=== PATIENT | male | born 1970 | race American Indian/Alaskan Native ===

== ENCOUNTER 2020-11-02 15:17 | Emergency (ER) | payer BC ==
--- NOTE | 2020-11-02 16:34 | Event Note ---
ED Screening Note Date of service: 11/02/20 Time: 16:33 ED Screening Note: 50-year-old -[place] male presents to the emergency room for right lower extremity swelling and pain and discoloration x4 days. Patient states that is been painful for about 2 weeks but noticed the discoloration recently. Patient denies any recent falls or injuries. Patient states that he went to an urgent care today and they sent him to the ER to be evaluated. Patient denies any chest pain or shortness of breath. This initial assessment/diagnostic orders/clinical plan/treatment(s) is/are subject to change based on patients health status, clinical progression and re- assessment by fellow clinical providers in the ED. Further treatment and workup at subsequent clinical providers discretion. Patient/guardian urged not to elope from the ED as their condition may be serious if not clinically assessed and managed. Initial orders include:
[2020-11-02 17:51] LABS: Basophils % (Auto) 0.4 % (0.0-1.8); Eosinophils # (Auto) 0.1 K/mm3 (0.0-0.4); Eosinophils % (Auto) 1.5 % (0.0-4.3); Hematocrit 32.2 % (35.5-45.6); Hemoglobin 10.2 gm/dl (11.8-15.2); Lymphocytes # (Auto) 1.4 K/mm3 (1.2-5.4); Lymphocytes % (Auto) 20.2 % (13.4-35.0); Mean Corpuscular HGB Conc 32 % (32-34); Mean Corpuscular Volume 87 fl (84-94); Monocytes # (Auto) 0.6 K/mm3 (0.0-0.8); Monocytes % (Auto) 9.1 % (0.0-7.3); Platelet Count 179 K/mm3 (140-440); Red Blood Count 3.69 M/mm3 (3.65-5.03); Red Cell Distribution Width 15.1 % (13.2-15.2)
--- NOTE | 2020-11-02 18:02 | Vascular Lab Report ---
DUPLEX DOPPLER LOWER EXTREMITY VEINS, RIGHT INDICATION / CLINICAL INFORMATION: rt le ext swelling, pain and discoloration.. TECHNIQUE: Duplex doppler imaging was performed through the veins of the right lower extremity using venous comp ression and other maneuvers. COMPARISON: None available. FINDINGS: RIGHT COMMON FEMORAL VEIN: Negative. RIGHT FEMORAL VEIN: There is incomplete compressibility with internal echoes demonstrated within the distal right femoral vein. Doppler flow is present. RIGHT POPLITEAL VEIN: Negative. RIGHT CALF VEINS: Negative. ADDITIONAL FINDINGS: Thrombus is also present within the right gastrocnemius vein in the calf. IMPRESSION: 1. Acute partially occlusive thrombus of the distal right femoral vein. 2. Superficial thrombophlebitis of the right gastrocnemius vein in the calf. CRITICAL RESULT: Time of Discovery (WIRE STITCHER/CDT): 11/02/2020 at 4:50 PM Time of Communication (WIRE STITCHER/CDT): 11/02/2020 at 4:58 PM Licensed Practitioner Receiving Report: JEFFREY Vora Read-Back Performed: Yes. Signer Name: Esa Romero MD Signed: 11/02/2020 5:58 PM Workstation Name: [id number]
[2020-11-02 18:14] LABS: Albumin 3.8 g/dL (3.9-5); Calcium 8.4 mg/dL (8.4-10.2)
[2020-11-02 18:17] LABS: INR 1.08 (0.87-1.13); Partial Thromboplastin Time 26.2 Sec. (24.2-36.6)
[2020-11-02] MEDS ORDERED: SODIUM CHLORIDE 0.9% 1000 ML 2,000 ML IV ONE (18:19)
[2020-11-02] MEDS ORDERED: SODIUM CHLORIDE 0.9% 1000 ML 3,000 ML IV ONE (18:19)
[2020-11-02] MEDS ORDERED: oxyCODONE /ACETAMINOPHEN 5-325MG TAB PO PRN (18:21)
[2020-11-02] MEDS ORDERED: ACETAMINOPHEN 325 MG TAB PO PRN (18:21)
--- NOTE | 2020-11-02 18:27 | History and Physical Report ---
History of Present Illness Chief complaint: My right leg swelling up History of present illness: 50 YO Male with Obesity Hypoventilation Syndrome, DM, HTN presents to ED for evaluation. Patient states that he has experienced "right leg swelling" over the past 1 week with persistent symptoms over the same timeframe. Patient also acknowledges right leg discoloration over the past 3 days. Patient presented to urgent care and was subsequent instructed to seek further care at [facility]. Patient transported via private vehicle to [facility] for further care and evaluation of the aforementioned symptoms. The patient was seen and evaluated in the emergency department. All lab and imaging studies reviewed. Patient underwent right lower extremity Doppler which revealed right femoral vein DVT.. The patient was also found to have acute kidney injury. The patient was admitted to medical floor and initiated on renal dose therapeutic anticoagulation. Patient denies fever, chills, chest pain, palpitations, productive cough, shortness of breath, recent ill contacts, prolonged travel/immobility, individual/family history of DVT/PE/bleeding/blood clotting disorders, trauma, known exposure to COVID-19. No prior admission for review. No medication listed at time of admission for reconciliation. Past History Past Medical History: diabetes, hypertension, other (See HPI) Past Surgical History: cholecystectomy, Other (Left knee surgery) Social history: single. denies: smoking, alcohol abuse, prescription drug abuse Family history: diabetes, hypertension Medications and Allergies Allergies Allergy/AdvReac Type Severity Reaction Status Date / Time bee venom protein (honey bee) Allergy Swelling Verified 11/02/20 15:32 Penicillins Allergy Unknown Verified 11/02/20 15:32 pollen extracts Allergy Unknown Verified 11/02/20 15:32 Active Meds: Active Medications Acetaminophen (Acetaminophen 325 Mg Tab) 650 mg PO Q4H PRN PRN Reason: Pain MILD(1-3)/Fever >100.5/VIDAL Sodium Chloride (Nacl 0.9% 1000 Ml) 3,000 mls @ 999 mls/hr IV BOLUS ONE Stop: 11/02/20 21:19 Ondansetron HCl (Ondansetron 4 Mg/2 Ml Inj) 4 mg IV Q8H PRN PRN Reason: Nausea And Vomiting Oxycodone/Acetaminophen (Oxycodone /Acetaminophen 5-325mg Tab) 1 tab PO Q6H PRN PRN Reason: Pain, Moderate (4-6) Sodium Chloride (Sodium Chloride 0.9% 10 Ml Flush Syringe) 10 ml IV BID MARTHA Sodium Chloride (Sodium Chloride 0.9% 10 Ml Flush Syringe) 10 ml IV PRN PRN PRN Reason: LINE FLUSH Review of Systems Constitutional: no weight loss, no weight gain, no fever, no chills Ears, nose, mouth and throat: no ear pain, no ear discharge, no tinnitis, no decreased hearing, no nose pain, no nasal congestion, no nasal discharge Cardiovascular: no chest pain, no orthopnea, no palpitations, no edema, no syncope, no lightheadedness, no shortness of breath Respiratory: no cough, no cough with sputum, no excessive sputum, no hemoptysis, no congestion, no pleurisy, no pain, no pain on inspiration Gastrointestinal: no abdominal pain, no nausea, no vomiting, no diarrhea, no change in bowel habits Genitourinary Male: no hematuria, no flank pain, no discharge, no urinary frequency, no urinary hesitancy Rectal: no pain, no incontinence, no bleeding Musculoskeletal: other (Right leg edema), no neck stiffness, no neck pain, no s hooting arm pain, no arm numbness/tingling, no low back pain Integumentary: no rash, no pruritis, no sores, no wounds, no jaundice, no boils Neurological: no transient paralysis, no paralysis, no weakness, no parathesias, no tingling, no seizures, no syncope, no tremors Psychiatric: no anxiety, no change in sleep habits, no sleep disturbances, no hypersomnia, no change in libido, no suicidal ideation Endocrine: no cold intolerance, no polyphagia, no polydipsia, no polyuria, no nocturia, no excessive sweating Hematologic/Lymphatic: no easy bruising, no easy bleeding Allergic/Immunologic: no urticaria, no wheezing Exam - Constitutional Vitals: Temp Pulse Resp BP Pulse Ox 98.2 F 92 H 18 126/79 97 11/02/20 15:32 11/02/20 15:32 11/02/20 15:32 11/02/20 15:32 11/02/20 15:32 General appearance: Present: mild distress - EENT Eyes: Present: PERRL ENT: hearing intact, clear oral mucosa - Neck Neck: Present: supple, normal ROM - Respiratory Respiratory effort: normal Respiratory: bilateral: CTA - Cardiovascular Heart Sounds: Present: S1 & S2. Absent: rub, click - Extremities Extremities: pulses symmetrical, No edema Extremity abnormal: edema, other (Right lower extremity, palpable cords) Peripheral Pulses: within normal limits - Abdominal General gastrointestinal: Present: soft, non-tender, non-distended, normal bowel sounds Male genitourinary: Present: normal - Integumentary Integumentary: Present: clear, warm, dry - Musculoskeletal Musculoskeletal: gait normal, strength equal bilaterally - Psychiatric Psychiatric: appropriate mood/affect, intact judgment & insight - Neurologic Neurologic: CNII-XII intact, moves all extremities Results - Labs CBC & Chem 7: 11/02/20 16:56 11/02/20 16:56 Labs: Abnormal lab results 11/02/20 11/02/20 Range/Units 16:56 16:56 Hgb 10.2 L (11.8-15.2) gm/dl Hct 32.2 L (35.5-45.6) % Hodgeman % (Auto) 9.1 H (0.0-7.3) % Chloride 107.1 H (98-107) mmol/L BUN 35 H (9-20) mg/dL Creatinine 2.4 H (0.8-1.3) mg/dL Glucose 198 H (75-100) mg/dL Albumin 3.8 L (3.9-5) g/dL Assessment and Plan - Patient Problems (1) DVT, lower extremity Current Visit: Yes Status: Acute Qualifiers: Affected thrombotic vein of extremity: femoral Chronicity: acute [place]ality: right Qualified Code(s): I82.411 - Acute embolism and thrombosis of right femoral vein Plan to address problem: Right lower extremity duplex, therapeutic anticoagulation with Eliquis, supportive care. We will increase therapeutic anticoagulation to 10 mg twice daily if patient renal function normalizes in a.m. (2) Acute kidney injury (SEA) with acute tubular necrosis (ATN) Current Visit: Yes Status: Acute Plan to address problem: IV fluid resuscitation therapy, monitor urine output every shift, avoid nephrotoxic agents repeat BMP in a.m. (3) Hypertension Current Visit: Yes Status: Acute Qualifiers: Hypertension type: essential hypertension Qualified Code(s): I10 - Essential (primary) hypertension Plan to address problem: Monitor blood pressure every shift, continue medical management (4) Diabetes Current Visit: Yes Status: Acute Plan to address problem: Sign scale insulin therapy, consistent carbohydrate diet, , Accu-Chek, hypoglycemia protocol (5) Obesity hypoventilation syndrome Current Visit: Yes Status: Acute Plan to address problem: Supplemental oxygen, pulse oximetry, outpatient pulmonary follow-up for sleep study. (6) DVT prophylaxis Current Visit: Yes Status: Acute Plan to address problem: SCD to bilateral lower extremities while in bed, therapeutic anticoagulation.
[2020-11-02 18:29] VITALS: BP 154/95
[2020-11-02] MEDS ORDERED: ONDANSETRON 4 MG/2 ML INJ IV PRN (18:31)
--- NOTE | 2020-11-02 18:33 | Emergency Department Report ---
ED General Adult HPI - General Chief complaint: Extremity Injury, Lower Stated complaint: SWELLING RT LEG PUI?: No Time Seen by Provider: 11/02/20 16:31 Source: patient, RN notes reviewed Mode of arrival: Ambulatory Limitations: No Limitations - History of Present Illness Initial comments: The patient was evaluated in the emergency department for symptoms described in the history of present illness. He/she was evaluated in the context of the global COVID-19 pandemic, which necessitated consideration that the patient might be at risk for infection with the virus that causes COVID-19. Institutional protocols and algorithms that pertain to the evaluation of patients at risk for COVID-19 are in a state of rapid change based on information released by regulatory bodies including the CDC and federal and state organizations. These policies and algorithms were followed during the patient's care in the emergency department. Please note that these policies, procedures and recommendations changed on a rapid basis. The patient is a 50-year-old gentleman. He typically follows at [facility]. Past medical history includes obesity, diabetes and hypertension. The patient presents to the ER with a complaint of right posterior distal leg discoloration, swelling and cramping. This is present for 1 week. The patient denies additional injuries and complaints. 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 Denies fever, cough, loss of taste and smell. Denies hematemesis and bright red blood per rectum. Denies personal/family history of DVT and pulmonary embolism risk factors. Patient has not had outpatient screening colonoscopy, or head prostate screening. There is no personal history of malignancy. There is a family history of gastric cancer in his brother. -: Gradual, days(s) Location: right, lower extremity Severity scale (0 -10): 6 Quality: aching Consistency: constant Improves with: none Worsens with: none Associated Symptoms: denies other symptoms - Related Data Allergies Allergy/AdvReac Type Severity Reaction Status Date / Time bee venom protein (honey bee) Allergy Swelling Verified 11/02/20 15:32 Penicillins Allergy Unknown Verified 11/02/20 15:32 pollen extracts Allergy Unknown Verified 11/02/20 15:32 ED Review of Systems ROS: Stated complaint: SWELLING RT LEG Other details as noted in HPI Comment: All other systems reviewed and negative Musculoskeletal: myalgia Skin: change in color ED Past Medical Hx - Past Medical History Previous Medical History?: Yes Hx Hypertension: Yes Hx Diabetes: Yes - Surgical History Past Surgical History?: Yes Hx Cholecystectomy: Yes Additional Surgical History: left knee - Social History Smoking Status: Never Smoker Substance Use Type: None ED Physical Exam - General Limitations: No Limitations General appearance: alert, in no apparent distress, obese - Head Head exam: Present: atraumatic, normocephalic - Eye Eye exam: Present: normal appearance, EOMI. Absent: nystagmus - ENT ENT exam: Present: normal exam, normal orophraynx, mucous membranes moist, normal external ear exam - Neck Neck exam: Present: normal inspection, full ROM. Absent: tenderness, meningismus - Respiratory Respiratory exam: Present: normal lung sounds bilaterally. Absent: respiratory distress, wheezes, rales, rhonchi, stridor, decreased breath sounds - Cardiovascular Cardiovascular Exam: Present: regular rate, normal rhythm, normal heart sounds. Absent: bradycardia, tachycardia, irregular rhythm, systolic murmur, diastolic murmur, rubs, gallop - GI/Abdominal GI/Abdominal exam: Present: soft, normal bowel sounds. Absent: distended, tenderness, guarding, rebound, rigid, pulsatile mass - Rectal Rectal exam: Present: deferred - Extremities Exam Extremities exam: Present: full ROM, other (2+ pulses noted in the bilateral upper and lower extremities. There is no long bony tenderness. The muscular compartments are soft. The right lower extremity is swollen compared to the left. There is hyperpigmentation of the right posterior distal lower extremity.). Absent: tenderness - Back Exam Back exam: Present: normal inspection, full ROM. Absent: tenderness, CVA tenderness (R), CVA tenderness (L), muscle spasm, paraspinal tenderness, vertebral tenderness - Neurological Exam Neurological exam: Present: alert, oriented X3, other (No facial droop. Tongue midline. Extraocular movements intact bilaterally. Facial sensation intact to light touch in V1, V2, V3 distribution bilaterally. 5 and a 5 strength in 4 extremities. Sensation intact to light touch in 4 extremities.). Absent: motor sensory deficit - Psychiatric Psychiatric exam: Present: normal affect, normal mood - Skin Skin exam: Present: warm, dry, intact, other (Hyperpigmentation of the right distal posterior lower extremity). Absent: rash ED Course Vital Signs 11/02/20 11/02/20 15:32 18:28 Temperature 98.2 F 97.9 F Pulse Rate 92 H 86 Respiratory 18 18 Rate Blood Pressure 126/79 Blood Pressure 154/95 [Left] O2 Sat by Pulse 97 100 Oximetry ED Medical Decision Making - Lab Data Result diagrams: 11/02/20 16:56 11/02/20 16:56 Vital Signs 11/02/20 11/02/20 15:32 18:28 Temperature 98.2 F 97.9 F Pulse Rate 92 H 86 Respiratory 18 18 Rate Blood Pressure 126/79 Blood Pressure 154/95 [Left] O2 Sat by Pulse 97 100 Oximetry Lab Results 11/02/20 11/02/20 11/02/20 Range/Units 16:56 16:56 16:56 WBC 7.0 (4.5-11.0) K/mm3 RBC 3.69 (3.65-5.03) M/mm3 Hgb 10.2 L (11.8-15.2) gm/dl Hct 32.2 L (35.5-45.6) % MCV 87 (84-94) fl MCH 28 (28-32) pg MCHC 32 (32-34) % RDW 15.1 (13.2-15.2) % Plt Count 179 (140-440) K/mm3 Lymph % (Auto) 20.2 (13.4-35.0) % Calhoun % (Auto) 9.1 H (0.0-7.3) % Eos % (Auto) 1.5 (0.0-4.3) % Baso % (Auto) 0.4 (0.0-1.8) % Lymph # (Auto) 1.4 (1.2-5.4) K/mm3 Calhoun # (Auto) 0.6 (0.0-0.8) K/mm3 Eos # (Auto) 0.1 (0.0-0.4) K/mm3 Baso # (Auto) 0.0 (0.0-0.1) K/mm3 Seg Neutrophils % 68.8 (40.0-70.0) % Seg Neutrophils # 4.8 (1.8-7.7) K/mm3 PT 13.9 (12.2-14.9) Sec. INR 1.08 (0.87-1.13) APTT 26.2 (24.2-36.6) Sec. Sodium 139 (137-145) mmol/L Potassium 4.3 (3.6-5.0) mmol/L Chloride 107.1 H (98-107) mmol/L Carbon Dioxide 25 (22-30) mmol/L Anion Gap 11 mmol/L BUN 35 H (9-20) mg/dL Creatinine 2.4 H (0.8-1.3) mg/dL Estimated GFR 35 ml/min BUN/Creatinine Ratio 15 % Glucose 198 H (75-100) mg/dL Calcium 8.4 (8.4-10.2) mg/dL Total Bilirubin 0.50 (0.1-1.2) mg/dL AST 13 (5-40) units/L ALT 11 (7-56) units/L Alkaline Phosphatase 69 (35-129) units/L Total Protein 6.7 (6.3-8.2) g/dL Albumin 3.8 L (3.9-5) g/dL Albumin/Globulin Ratio 1.3 % - Radiology Data Radiology results: report reviewed, image reviewed Print Report Referring Physician: RAMONITA BROWN Patient Name: POLY RODRIGUEZ Date of : 1970 Sex: Male Report Date: 2020-11-02 Report Status: [place] [address] Vascular Lab Report Signed Patient: POLY RODRIGUEZ MR#: [id number] 5 : 1970 Acct:[id number] Age/Sex: 50 / M ADM Date: 11/02/20 Loc: ED Attending Dr: Ordering Physician: ANA FISCHER Date of Service: 11/02/20 Procedure(s): VL venous duplex LE RT Accession Number(s): [id number] cc: ANA FISCHER DUPLEX DOPPLER LOWER EXTREMITY VEINS, RIGHT INDICATION / CLINICAL INFORMATION: rt le ext swelling, pain and discoloration.. TECHNIQUE: Duplex doppler imaging was performed through the veins of the right lower extremity using venous compression and other maneuvers. COMPARISON: None available. FINDINGS: RIGHT COMMON FEMORAL VEIN: Negative. RIGHT FEMORAL VEIN: There is incomplete compressibility with internal echoes demonstrated within the distal right femoral vein. Doppler flow is present. RIGHT POPLITEAL VEIN: Negative. RIGHT CALF VEINS: Negative. ADDITIONAL FINDINGS: Thrombus is also present within the right gastrocnemius vein in the calf. IMPRESSION: 1. Acute partially occlusive thrombus of the distal right femoral vein. 2. Superficial thrombophlebitis of the right gastrocnemius vein in the calf. CRITICAL RESULT: Time of Discovery (FRONT END TECHNICIAN/CDT): 11/02/2020 at 4:50 PM Time of Communication (FRONT END TECHNICIAN/CDT): 11/02/2020 at 4:58 PM Licensed Practitioner Receiving Report: JFEFREY Vora Read-Back Performed: Yes. Signer Name: Taj Romero MD Signed: 11/02/2020 5:58 PM Workstation Name: [id number] Transcribed By: JS Dictated By: TAJ ROMERO MD Electronically Authenticated By: TAJ ROMERO MD Signed Date/Time: 11/02/201757 DD/ 52 TD/TT: - Medical Decision Making Differential diagnosis, including but not limited to: Renal insufficiency, hepatic insufficiency, DVT, venous stasis Assessment and plan: 50-year-old gentleman with right lower extremity swelling, found to have lower extremity DVT, without chest pain, shortness of breath. This appears to be an unprovoked DVT. Patient denies discussed the need to follow-up as an outpatient to exclude cancer, tumor, malignancy. He is resting comfortably in his stretcher. Laboratory studies were obtained, and demonstrated renal insufficiency of unknown chronicity. Given renal insufficiency, patient not a candidate at this time for novel oral anticoagulant. Admission is recommended for IV fluids, initiation of anticoagulation, and further diagnostic work-up. Patient is amenable to this plan of care. Hospital physician, Dr. Melendez, has accepted the patient to his service. He requests IV fluids, and requested that we not initiate heparin drip. The emergency room, and indicated he would determine appropriate plan of anticoagulation. Critical care attestation.: If time is entered above; I have spent that time in minutes in the direct care of this critically ill patient, excluding procedure time. ED Disposition Clinical Impression: Renal insufficiency DVT, lower extremity Qualifiers: Affected thrombotic vein of extremity: femoral Chronicity: acute Laterality: right Qualified Code(s): I82.411 - Acute embolism and thrombosis of right femoral vein Disposition: OP ADMIT IP TO THIS HOSP Is pt being admited?: Yes Does the pt Need Aspirin: No Condition: Good Referrals: PRIMARY CARE, [Primary Care Provider] - 3-5 Days
[2020-11-02] MEDS ORDERED: SODIUM CHLORIDE 0.9% 1000 ML 1,000 ML IV ONE (19:00)
[2020-11-02 19:17] LABS: Creatinine,Urine 129.1 mg/dL (0.1-20.0)
[2020-11-02] MEDS ORDERED: APIXABAN 5 MG TAB PO SCH (20:00)
[2020-11-05 10:20] LABS: Protein S, Free 143 % normal (57-171); Protein S, Total 102 % normal (70-140)
== END 2020-11-02 23:10 | disposition admitted as inpatient to this hospital (09) ==
LOC: ED 15:17 → 3A 18:21 → UNDOADMOB 18:21 → 3A 22:22 → 4A 22:22
DX: N17.9 Acute kidney failure, unspecified (principal); I82.409 Acute embolism and thrombosis of unspecified deep veins of unspecified lower extremity; I10 Essential (primary) hypertension; E11.9 Type 2 diabetes mellitus without complications; Z90.49 Acquired absence of other specified parts of digestive tract; Z98.890 Other specified postprocedural states; Z88.0 Allergy status to penicillin; Z88.8 Allergy status to other drugs, medicaments and biological substances
CPT/HCPCS: 36415; 80053; 82570; 84300; 85025; 85220; 85301; 85305; 85610; 85730; 93971; 96360; 96361; 99284; J7030

== ENCOUNTER 2021-02-11 01:11 | Emergency (ER) | payer BC ==
[2021-02-11 02:31] VITALS: BP 156/77
--- NOTE | 2021-02-11 04:28 | Emergency Department Report ---
ED Back Pain/Injury HPI - General Chief Complaint: Extremity Injury, Lower Stated Complaint: LOWER BACK/HIP PAIN Time Seen by Provider: 02/11/21 03:44 Source: patient Limitations: No Limitations - History of Present Illness Initial Comments: 50-year-old morbid obese -Armenian male presents to the emergency room complaining of pain to both hips and lower back. 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 Patient states he took Tylenol last dose on Wednesday. Patient states the pain is worse with bending of his back and worse in both hips with walking. Patient does have a recent diagnosis of a right DVT back in November 02, 2020. Patient also was admitted for acute kidney injury. Patient has a history of diabetes and hypertension. He reports he is currently on amlodipine lisinopril carvedilol and glipizide. Complaint: back injury Onset/Timin -: days(s) Radiation: other (Bilateral hips and lower back) Severity: moderate Severity scale (0 -10): 8 Quality: sharp, aching Consistency: constant Improves With: immobilization Worsens With: walking, other (Bending) Context: fall Associated Symptoms: denies other symptoms Treatments Prior to Arrival: acetaminophen (2 days ago) - Related Data Allergies Allergy/AdvReac Type Severity Reaction Status Date / Time bee venom protein (honey bee) Allergy Swelling Verified 11/02/20 15:32 Penicillins Allergy Unknown Verified 11/02/20 15:32 pollen extracts Allergy Unknown Verified 11/02/20 15:32 ED Review of Systems ROS: Stated complaint: LOWER BACK/HIP PAIN Other details as noted in HPI Comment: All other systems reviewed and negative ED Past Medical Hx - Past Medical History Hx Hypertension: Yes Hx Diabetes: Yes - Surgical History Hx Cholecystectomy: Yes Additional Surgical History: left knee - Social History Smoking Status: Never Smoker Substance Use Type: None ED Physical Exam - General Limitations: No Limitations General appearance: alert - Head Head exam: Present: atraumatic, normocephalic - Eye Eye exam: Present: normal appearance - ENT ENT exam: Present: normal exam - Neck Neck exam: Present: normal inspection, full ROM - Respiratory Respiratory exam: Present: normal lung sounds bilaterally. Absent: respiratory distress, accessory muscle use - Cardiovascular Cardiovascular Exam: Present: regular rate - Extremities Exam Extremities exam: Present: full ROM. Absent: tenderness - Back Exam Back exam: Present: full ROM, muscle spasm (right) - Neurological Exam Neurological exam: Present: alert, oriented X3, normal gait - Psychiatric Psychiatric exam: Present: normal affect, normal mood - Skin Skin exam: Present: warm, dry, intact, normal color. Absent: rash ED Course Vital Signs 02/11/21 02/11/21 02:25 02:30 Temperature 98.5 F 98.5 F Pulse Rate 69 68 Respiratory 16 16 Rate Blood Pressure 156/77 Blood Pressure 156/77 [Left] O2 Sat by Pulse 96 Oximetry ED Medical Decision Making - Radiology Data Radiology results: report reviewed [address] [address] XRay Report Signed Patient: POLY RODRIGUEZ MR#: [id number] 5 : 1970 Acct:[id number] Age/Sex: 50 / M ADM Date: 02/11/21 Loc: ED Attending Dr: Ordering Physician: ANA FISCHER Date of Service: 02/11/21 Procedure(s): XR spine lumbosacral 2-3V Accession Number(s): [id number] cc: ANA FISCHER Fluoro Time In Minutes: LUMBAR SPINE HISTORY: Pain after fall COMPARISON: None. TECHNIQUE: 2 view(s) of the lumbar spine obtained. FINDINGS: Vertebrae: Normal alignment. No displaced fracture or significant abnormality. Disc Spaces:Mild degenerative disc disease in the lower lumbar spine. Facet Joints:No significant abnormality. Additional findings: None. IMPRESSION: 1. No significant abnormality of the lumbar spine. Signer Name: Leonie Wesley MD Signed: 02/11/2021 4:38 AM Workstation Name: [id number] Transcribed By: [facility] Dictated By: Leonie Wesley MD Electronically Authenticated By: Leonie Wesley MD Signed Date/Time: 02/11/21437 DD/ 6 TD/TT: [address] [address] XRay Report Signed Patient: POLY RODRIGUEZ MR#: [id number] 5 : 1970 Acct:[id number] Age/Sex: 50 / M ADM Date: 02/11/21 Loc: ED Attending Dr: Ordering Physician: ANA FISCHER Date of Service: 02/11/21 Procedure(s): XR hips BILAT 2V w/pelvis Accession Number(s): [id number] cc: ANA FISCHER Fluoro Time In Minutes: BILATERAL HIP RADIOGRAPH, 2 VIEWS, WITH AP PELVIS INDICATION / CLINICAL INFORMATION: pain in both hips after fall COMPARISON: None available. FINDINGS: BONES / JOINT(S): No acute displaced fracture or subluxation. Mild degenerative change of both hips. SOFT TISSUES: No significant abnormality. ADDITIONAL FINDINGS: None. Signer Name: Leonie Wesley MD Signed: 02/11/2021 4:36 AM Workstation Name: [id number] Transcribed By: C Dictated By: Leonie Wesley MD Electronically Authenticated By: Leonie Wesley MD Signed Date/Time: 02/11/21435 DD/ 3 TD/TT: Print Cancel Print Cancel Critical care attestation.: If time is entered above; I have spent that time in minutes in the direct care of this critically ill patient, excluding procedure time. ED Disposition Clinical Impression: Hip pain, bilateral Back pain Qualifiers: Back pain location: low back pain Chronicity: acute Back pain laterality: right Sciatica presence: without sciatica Qualified Code(s): M54.5 - Low back pain Injury of back due to fall Qualifiers: Encounter type: initial encounter Qualified Code(s): S39.92XA - Unspecified injury of lower back, initial encounter; W19.XXXA - Unspecified fall, initial encounter Degenerative disc disease Qualifiers: Spinal region: lumbosacral Qualified Code(s): M51.37 - Other intervertebral disc degeneration, lumbosacral region Degenerative joint disease (DJD) of hip Qualifiers: Osteoarthritis type: unspecified Laterality: bilateral Qualified Code(s): M16.0 - Bilateral primary osteoarthritis of hip Disposition: TO HOME OR SELFCARE Is pt being admited?: No Does the pt Need Aspirin: No Condition: Stable Instructions: Joint Pain, Fwcz-bc-Cgon, Arthritis, Hyyy-oh-Lcsu Additional Instructions: X-rays are negative for any acute fractures or dislocation. It does show mild degenerative disc disease as well as mild degenerative joint disease which is precursor for arthritis. Continue taking Tylenol as needed for pain. Follow-up with your primary care provider. Referrals: PRIMARY CARE,MD [Primary Care Provider] - 3-5 Days Your, primary care provider [Other] - 3-5 Days Forms: Work/School Release Form(ED) Time of Disposition: 06:40
--- NOTE | 2021-02-11 04:41 | XRay Report ---
BILATERAL HIP RADIOGRAPH, 2 VIEWS, WITH AP PELVIS INDICATION / CLINICAL INFORMATION: pain in both hips after fall COMPARISON: None available. FINDINGS: BONES / JOINT(S): No acute displaced fracture or subluxation. Mild degenerative change of both hips. SOFT TISSUES: No significant abnormality. ADDITIONAL FINDINGS: None. Signer Name: Leonie Wesley MD Signed: 02/11/2021 4:36 AM Workstation Name: [id number]
--- NOTE | 2021-02-11 04:42 | XRay Report ---
LUMBAR SPINE HISTORY: Pain after fall COMPARISON: None. TECHNIQUE: 2 view(s) of the lumbar spine obtained. FINDINGS: Vertebrae: Normal alignment. No displaced fracture or significant abnormality. Disc Spaces:Mild degenerative disc disease in the lower lumbar spine. Facet Joints:No significant abnormality. Additional findings: None. IMPRESSION: 1. No significant abnormality of the lumbar spine. Signer Name: Leonie Wesley MD Signed: 02/11/2021 4:38 AM Workstation Name: [email or web address]
== END 2021-02-11 07:01 | disposition home or self-care (01) ==
LOC: ED 01:11
DX: S39.92XA Unspecified injury of lower back, initial encounter (principal); M16.0 Bilateral primary osteoarthritis of hip; I10 Essential (primary) hypertension; E11.9 Type 2 diabetes mellitus without complications; Z91.030 Bee allergy status; Z88.8 Allergy status to other drugs, medicaments and biological substances; W19.XXXA Unspecified fall, initial encounter; Y93.89 Activity, other specified; Y92.89 Other specified places as the place of occurrence of the external cause; Y99.8 Other external cause status
CPT/HCPCS: 72100; 73521; 99283